=== PATIENT | female | born 1990 | race African-American/Black ===

== ENCOUNTER 2017-03-25 17:16 | Emergency (ER) | payer OTHER ==
[~2017-03-25] VITALS: Ht 160 cm; Wt 89.4 kg
[~2017-03-25 17:16] MED LIST: BACTRIM DS TAB1 EACH PO; IBUPROFEN 600600 M1 PO; MACROBID 100 M100 M1 PO; NOHOMEMEDICATIONS; NORCO 5-325 TA1 EACH PO; ONDANSETRON HCL4 M2 PO; PHENERGAN 25 MG25 M1 PO; TRAMADOL 50 MG50 MG PO; ZOFRAN4 MG PO
[2017-03-25 17:18] VITALS: BP 126/74
[2017-03-25 17:35] LABS: URINE BILIRUBIN NEGATIVE (Negative); URINE BLOOD TRACE (Negative); URINE COLOR YELLOW; URINE GLUCOSE-RANDOM* NEGATIVE (Negative); URINE KETONES NEGATIVE (Negative); URINE NITRITE NEGATIVE (Negative); URINE PROTEIN (DIPSTICK) 1+ (Negative); URINE UROBILINOGEN 0.2 E.U./dl (0.2-1.0)
[2017-03-25 17:55] LABS: BACTERIA >30 Many /HPF (None Seen); CASTS None Seen /LPF (None Seen); SQUAMOUS >10 Many /LPF (0-3); URINE RBC 3-10 Few /HPF (0-2); URINE WBC >25 Many /HPF (0-5)
[2017-03-25 17:56] LABS: CRYSTALS None Seen /LPF (None Seen)
[2017-03-25] MEDS ORDERED: MACROBID 100 M100 M1 PO (18:03)
== END 2017-03-25 18:19 | disposition home or self-care (01) ==
LOC: ER 17:16
PROVIDERS: Nurse Practitioner
DX: N39.0 Urinary tract infection, site not specified (principal); F10.99 Alcohol use, unspecified with unspecified alcohol-induced disorder